=== PATIENT | female | born 1945 | race Caucasian/White ===

== ENCOUNTER 2025-05-08 12:30 | Observation (INO) | payer OTHER, SELFPAY ==
[2025-05-08] VITALS (14 sets, daily range): BP systolic 128–172; BP diastolic 69–126; BMI 32.6; BMI 26.1
[2025-05-08 08:35] LABS: Hematocrit 37.4 % (37.0-47.0); Hemoglobin 12.0 g/dL (12.0-16.0); Mean Corp Hgb Conc. 32.1 g/dL (33.0-37.0); Mean Corpuscular Volume 89.5 fL (81.0-99.0); Nucleated Red Blood Cells % 0 %; Platelet Count 247 10^3/uL (130-400); Red Cell Dist. Width 15.3 % (11.5-14.5)
--- NOTE | 2025-05-08 08:45 | ED.GENMED ---
History of Present Illness
General
Chief Complaint: Dizziness
Source: patient
Exam Limitations: none
Time Seen by Provider: 05/08/25 08:35
History of Present Illness
History of Present Illness:
79-year-old female 2 days of room spinning/disequilibrium. Occurs multiple times throughout the day. Worse when turning her head. Last episode was this morning. No other acute neurologic symptoms. Does describe some general headache that is
slightly unusual for her. No nausea or vomiting. No visual issues double vision.
Past History
Past History
ED Past Medical History: HTN, Psychiatric (a/d, prev hx of alcohol abuse) and Other (Hyponatremia, macular degeneration)
ED Past Surgical History: , Tonsilectomy and Other (Gastric bypass)
Social History
Tobacco: Non-smoker
Alcohol: None
Drug: None
Living: alone
Employment: Retired
Family History
Family History: Other (Sister with MS, mother with muscular dystrophy)
Review of Systems
Review of Systems
All Other Systems: Not applicable
Respiratory: Reports no symptoms
Cardiac: Reports no symptoms
ABD/GI: Reports no symptoms
Phy Exam
Physical Exam
Physical Exam:
GENERAL: Alert and oriented in no apparent distress
EYE: Orbits normal. Ongoing right horizontal nystagmus. No rotatory no bidirectional nystagmus
NECK: Supple
ENT: Pharynx without erythema
CARDIAC: Regular rate and rhythm without any obvious murmurs.
LUNGS: Clear breath sounds,normal
ABDOMEN: Soft, without focal tenderness or distention
NEUROLOGICAL: Alert and oriented , chronic left hemiplegia.
SKIN: Warm and dry, no rash or lesion, no discoloration, skin intact.
MUSCULOSKELETAL: No edema,no deformity.Good color
PSYCH: Normal and appropriate interaction.
Course
Orders/Labs/Results
Orders:
Orders
05/08/25 08:26
Electrocardiogram (*1) Urgent
Reason for Study: Chest Pain
EKG- Treatment ONCE
05/08/25 08:28
Complete Blood Count/With Diff Urgent
Comprehensive Metabolic Panel Urgent
Troponin I Urgent
05/08/25 08:44
CT Head W/o Iv Contrast Urgent
Comment:
Reason For Exam: Headache/disequilibrium
Cardiac Monitoring- Treatment ONCE
Meclizine [Antivert] 12.5 mg PO NOW STA
Abnormal Lab Results
05/08/25
08:28
RBC 4.18 L 10^6/uL
(4.20-5.40)
MCHC 32.1 L g/dL
(33.0-37.0)
RDW 15.3 H %
(11.5-14.5)
BUN 22 H mg/dl
(7-17)
Creatinine 1.2 H mg/dL
(0.6-1.0)
Glucose 115 H mg/dl
(70-99)
05/08/25 08:28
05/08/25 08:28
Vital Signs
Initial and Last Documented VS:
Initial Vital Signs
Temp Pulse Resp BP Pulse Ox
98.2 F 74 12 156/91 96
05/08/25 08:17 05/08/25 08:17 05/08/25 08:17 05/08/25 08:17 05/08/25 08:17
Last Documented Vital Signs
Temp Pulse Resp BP Pulse Ox
98.2 F 75 17 155/88 96
05/08/25 08:17 05/08/25 09:53 05/08/25 09:53 05/08/25 09:52 05/08/25 09:15
MDM/Problems Addressed
Differential Diagnosis Includes:
Patient describing disequilibrium/vertigo. Seems positional in nature. Old CVA with old hemiplegia. No acute neurologic symptoms. Likely inner ear however clearly at risk for CVA. Workup in progress.
*Pulse Oximetry
SaO2: 98
Oxygen Mode of Delivery: Room air
Patient hypoxic: no
*Critical Care Note
Total Time (30-74mins, 75-104mins- exclusive of procedures): Not Applicable
Data Reviewed
Review of Other/Old Records Reveals: Labs, Records and Testing
ED Attending Note
-
Portions of this chart may have been created with voice recognition software.� Occasional wrong word or��sound alike� substitutions may have occurred due to the inherent limitations of voice recognition software.
Discharge Plan
Departure
Patient Disposition: Admit
Date of Disposition: 05/08/25
Time of Disposition: 10:38
Presentation/result/management discussed w/ accepting MD/DO: Hospitalist
Discharge Problem:
Disequilibrium/vertigo, Ambulatory issues, History of left hemiplegia
Prescriptions:
No Action
Lokelma 10 gram Powder In Packet
10 g PO MOWEFR
Rx Instructions:
free products from [employer]
gabapentin 600 mg Tablet
600 mg PO BID
clopidogrel [Plavix] 75 mg Tablet
75 mg PO DAILY
tramadol 50 mg Tablet
50 mg PO TIDPRN PRN (Reason: moderate pains)
sodium bicarbonate 650 mg Tablet
650 mg PO TID
losartan 25 mg Tablet
25 mg PO QPM
Prolia 60 mg/mL Syringe
60 mg SC [id number]
PreserVision AREDS 2,148 mcg-113 mg-45 mg-17.4mg Tablet
1 tab PO BID
dapagliflozin propanediol [Farxiga] 10 mg Tablet
10 mg PO DAILY
atorvastatin 40 MG tablet
40 mg PO QPM
cyanocobalamin (vitamin B-12) 1,000 MCG tablet
1,000 mcg PO DAILY
amlodipine 5 MG tablet
5 mg PO DAILY
bupropion HCl 100 MG tablet
100 mg PO BID
cholecalciferol (vitamin D3) 1,000 UNITS tablet
1,000 units PO DAILY
multivitamin with folic acid [Tab-A-Lazaro] 1 TABLET tablet
1 tab PO DAILY 0RF
Referrals:
Harika Traylor DO [Family Provider, Family Practice]
Interventions
Interventions:
*Risk Screen - Suicide Last Done: 05/08/25 08:17
*General Assessment Last Done: 05/08/25 08:17
*Neglect/Abuse Screening Last Done: 05/08/25 08:17
*ED- Fall Risk Assessment Last Done: 05/08/25 08:17
ED- Neurological Assessment Last Done: 05/08/25 08:26
ED- Cardiac Assessment Last Done: 05/08/25 08:17
ED Swallowing Screen Last Done: 05/08/25 08:26
Discharge Date and Time
Print Language: LAO
[2025-05-08 08:48] LABS: ALT (SGPT) 30 U/L (0-35); AST (SGOT) 25 U/L (14-36); Albumin 4.1 g/dl (3.5-5.0); Alkaline Phosphatase 124 U/L (38-126); Blood Urea Nitrogen 22 mg/dl (7-17); Calcium 10.0 mg/dl (8.4-10.2); Carbon Dioxide 28 mmol/L (22-30); Chloride 106 mmol/L (98-107); Estimated Creatinine Clearance 40 ml/min; Glucose 115 mg/dl (70-99); Potassium 4.4 mmol/L (3.5-5.1); Sodium 137 mmol/L (135-145); Total Protein 6.8 g/dl (6.3-8.2); eGFR 46.33
[2025-05-08] MEDS: ANTIVERT 12.5 MG PO ×3 (08:59→21:25)
[2025-05-08 09:00] LABS: Troponin I 0.013 ng/ml
--- NOTE | 2025-05-08 12:13 | HPS.HSE ---
Addendum entered and electronically signed by Claribel Muniz MD 05/08/25 14:01:
Attending�addendum:
I saw and evaluated the patient independently. I reviewed and discussed the resident�s note and agree with findings and plan as documented in the resident�s note.� patient seen and examined at bedside, family at bedside, patient with history of CVA
who presented to the ER with dizziness, CT head negative, received imploring, patient denies any chest pain or shortness of breath, no abdominal pain, no nausea, no vomiting, no diarrhea or constipation.
Physical�exam:
GENERAL : Patient is awake, alert, oriented x3
HEENT: Nonicteric sclerae, PERRLA, EOMI. Oropharynx clear. Moist mucous membranes. Conjunctivae appear well perfused.
CHEST: Chest wall is nontender.
HEART: Regular rate and rhythm without murmurs.
LUNGS: Clear to auscultation bilaterally.
ABDOMEN: Soft, positive bowel sounds, nontender, no organomegaly.
RECTAL: Deferred.
MUSCLES/EXTREMITIES: No abnormal range of motion, no swelling.SKIN: No rash, no excessive bruising, petechiae, or purpura.
NEUROLOGIC: Baseline left-sided weakness
�
Assessment/plan:
Dizziness, possible benign positional vertigo.
MRI brain pending.
Continue meclizine.
Hypertension/hyperlipidemia.
Continue home meds.
History of CVA.
Continue plavix
CODE STATUS: Full code
DVT prophylaxis: Lovenox
Diet: Cardiac diet
Family communication: Discussed with family at bedside
Disposition: MRI brain
�
Total time spent on today�s encounter was 75 minutes which included time spent in counseling the patient/family regarding diagnosis and treatment plan as listed above, goals of care, and symptom management. Case was discussed with nursing staff,
specialists, and care coordinators/case management. All labs and imaging personally reviewed by me. Remainder the time spent in detailed review of previous records, lab data, imaging, and other medical provider documentation.
Original Note:
Family Physician
-
Family Physician: Harika Traylor
Chief Complaint
-
Dizziness
History of Present Illness
79-year-old female with past medical history of CVA in 2019, hypertension, hyperlipidemia, CKD 3A, macular degeneration, chronic back pain, depression, hyponatremia presents to the ER for dizziness. It started about 2 days ago with associated
headache. The dizziness is worse with quick head movements and when she closes her eyes. The dizziness goes away when she lays down flat with her eyes open. The headache she had was located in the back of her head. She rated it 5 out of 10 in
pain however it resolved this morning. She did not take any medication for it to resolve. She denies any recent upper respiratory tract infection. She denies any cough, cold, runny nose, sore throat. She denies any new weakness, numbness,
tingling. She has chronic left-sided hemiplegia and associated nerve pain for which she takes gabapentin from her CVA in 2019. She denies any chest pain, shortness of breath, heart palpitations, nausea, vomiting, diarrhea, constipation, dysuria,
hematuria, swelling in her lower extremities.
In the ED, she was noted to be slightly hypertensive however vitals otherwise afebrile satting well on room air. CBC and CMP fairly unremarkable. Creatinine of 1.2 is around baseline as patient states baseline creatinine is around 1.3-1.5.
[address] revealed no acute abnormalities. She received 1 dose of meclizine which did not help. Given her prior history of CVA, we are admitting overnight for further stroke work up.
Medical History
Past Medical History
Past Medical History: Reports Other (CVA 2019, CKD 3A, hypertension, hyperlipidemia, hyponatremia, chronic back pain, depression, history of alcohol use disorder)
Past Surgical History: Reports Other (, tonsillectomy, gastric bypass surgery, left hip gamma nail placement 02/2021)
Social History
Tobacco: Non-smoker
Alcohol: Former (Alcohol use disorder 40 years ago)
Drug: None
Living: Alone
Family History
Family History: Other (Mother - muscular dystrophy. Sister - MS, CVA.)
Allergies / Home Medications
Allergies reflects when Allergies were last updated in [facility].
Home Medications with original date entered in [facility]
Allergy/Medication List:
Allergies
Allergy/AdvReac Type Severity Reaction Status Date / Time
alendronate sodium (From Allergy Hives Verified 05/08/25 08:17
Fosamax)
enalapril Allergy cough Verified 05/08/25 08:17
nitrofurantoin Allergy Hives/rash, Verified 05/08/25 08:17
itching
Home Medications
multivitamin with folic acid 400 mcg tablet (Tab-A-Lazaro) 1 tab PO DAILY 03/26/20
amlodipine 5 mg tablet 5 mg PO DAILY Blood Pressure 05/08/25
atorvastatin 40 mg tablet 40 mg PO QPM High Cholesterol 05/08/25
bupropion HCl 100 mg tablet 100 mg PO BID Mental Health/Anxiety 05/08/25
cholecalciferol (vitamin D3) 25 mcg (1,000 unit) tablet 1,000 units PO DAILY Supplement 05/08/25
clopidogrel 75 mg tablet (Plavix) 75 mg PO DAILY Blood Clot Prevention/Tx 05/08/25
cyanocobalamin (vitamin B-12) 1,000 mcg tablet 1,000 mcg PO DAILY Supplement 05/08/25
dapagliflozin propanediol 10 mg tablet (Farxiga) 10 mg PO DAILY 05/08/25
denosumab 60 mg/mL subcutaneous syringe (Prolia) 60 mg SC [id number] 05/08/25
gabapentin 600 mg tablet 600 mg PO BID Neurological Condition 05/08/25
losartan 25 mg tablet 25 mg PO QPM 05/08/25
sodium bicarbonate 650 mg tablet 650 mg PO TID Electrolyte Repletion 05/08/25
sodium zirconium cyclosilicate 10 gram oral powder packet (Lokelma) 10 g PO MOWEFR 05/08/25
tramadol 50 mg tablet 50 mg PO TIDPRN PRN moderate pains 05/08/25
vitamins A,C,H-fzry-mglcps 2,148 mcg-113 mg-45 mg-17.4 mg tablet (PreserVision AREDS) 1 tab PO BID Supplement 05/08/25
Review of Systems
-
History Source: Patient
EENT: Reports No Symptoms
Respiratory: Reports No Symptoms
Cardiac: Reports No Symptoms
Abdomen/GI: Reports No Symptoms
: Reports No Symptoms
Musculoskeletal: Reports No Symptoms
Skin: Reports No Symptoms
Neurological: Reports Dizzy
Psych: Reports Calm
Physical Exam
Vital Signs
Vital Signs
Temp Pulse Resp BP Pulse Ox
98.2 F 71 16 134/78 99
05/08/25 08:17 05/08/25 10:00 05/08/25 10:00 05/08/25 10:00 05/08/25 10:00
Physical Exam
General: No Apparent Distress and Comfortable
HEENT: Moist mucous membranes and Other (Cerumen in bilateral ears, unable to visualize TM, horizontal nystagmus at rest. No vertical or bidirectional nystagmus noted.)
Respiratory: Clear
Cardiac: S1/S2 and Regular Rhythm
GI: Soft, Non Tender, Non Distended and Normal Bowel Sounds
Genito-urinary: Deferred by me
Musculoskeletal: No Cyanosis
Skin: Warm and Dry
Neuro: AO x 3, No Motor Deficits, Cranial Nerves Intact (Intact except for cranial nerve V on the left side with decree sensation with light touch -sequela of prior CVA) and Other (Chronic left-sided hemiplegia)
Psych: Calm
Laboratory Results
-
05/08/25 08:28
05/08/25 08:28
Laboratory Results
Total Bilirubin 0.5 mg/dl (0.2-1.3) 05/08/25 08:28
AST 25 U/L (14-36) 05/08/25 08:28
ALT 30 U/L (0-35) 05/08/25 08:28
Alkaline Phosphatase 124 U/L (38-126) 05/08/25 08:28
Troponin I 0.013 ng/ml 05/08/25 08:28
Impression/Plan
-
IMPRESSION:
79-year-old female with past medical history of CVA in 2019 presents to the ER for positional dizziness with associated horizontal nystagmus. Most likely cause is BPPV, however given history of CVA and occipital headache yesterday, the patient has
been admitted for further work up to rule out recurrent stroke.
IMAGING:
Head CT noncontrast 05/08/2025:
No acute intracranial abnormalities.
Old right parietal lobe infarct again identified.
Findings again seen compatible with diffuse cortical atrophy with nonspecific white matter changes as described above.
PLAN:
#Dizziness
# History of CVA 2019
-- Differentials include BPPV, vestibular labyrinthitis, M�ni�re's disease, CVA
-- Head CT no acute findings
-- Admit for observation
-- MRI noncontrast pending
-- Continue Plavix - On plavix watermaster and not asa due to CKD per neurologist Dr. Sindy Ghotra outpatient records
-- Continue atorvastatin
-- Meclizine 12.5 TID for dizziness
#CKD 3A
-- Creatinine 1.2 -baseline per patient 1.3-1.5
-- Continue Lokelma, sodium bicarb, Farxiga
-- Avoid nephrotoxic agents
#Hypertension
--Continue amlodipine, losartan
#Depression
-- Continue bupropion
#Chronic back pain
-- Continue tramadol
#Macular degeneration - continue home vitamins
#Gastric bypass surgery
#Hyponatremia
#Osteoporosis - On Prolia
DVT - heparin
Full code
--- NOTE | 2025-05-08 13:18 | CM ---
Chart reviewed. LATRELL reviewed at 1:05 pm
Spoke with patient at bedside ED
hx of CVA in the past and weak on left side
Lives in a condo first floor set up no KASSANDRA
Independent with ADLs and ambulating with a rollator
Has a cleaning lady once a week
Does NOT drive using instacart
DME Rollator, toilet grab bars
PCP Dr. Eliseo Traylor
RX plan yes
Pharmacy [facility] [place]
[facility]
Interested in [facility] if needs HHC.
no hx of SNF
DCP is to go home with HHC if needed
Son or dtr can pick her up
Dheeraj in [place]
Venkatesh in [place]
Marti in [facility]
CM will continue to follow up for any dcp needs
[2025-05-08] MEDS: LOKELMA 10 GRAM PO (14:28)
[2025-05-08] MEDS: HEPARIN 5000 UNITS SC (16:57)
[2025-05-08] MEDS: SODIUM BICARBONATE 650 MG PO ×2 (16:57→21:24)
[2025-05-08] MEDS: LIPITOR 40 MG PO (17:06)
[2025-05-08] MEDS: COZAAR 25 MG PO (17:06)
[2025-05-08] MEDS: WELLBUTRIN REGULAR RELEASE 100 MG PO (19:55)
[2025-05-08] MEDS: OCUVITE SOFTGEL 1 CAP PO (19:55)
[2025-05-08] MEDS: NEURONTIN 600 MG PO (19:55)
[2025-05-08] MEDS: ULTRAM 50 MG PO (19:56)
[2025-05-09] MEDS: HEPARIN 5000 UNITS SC ×2 (00:04→09:06)
[2025-05-09 07:43] VITALS: BP 155/80
[2025-05-09 07:52] LABS: Hematocrit 37.0 % (37.0-47.0); Hemoglobin 12.1 g/dL (12.0-16.0); Mean Corp Hgb Conc. 32.7 g/dL (33.0-37.0); Mean Corpuscular Volume 89.8 fL (81.0-99.0); Platelet Count 272 10^3/uL (130-400); Red Cell Dist. Width 15.6 % (11.5-14.5)
[2025-05-09 08:24] LABS: Blood Urea Nitrogen 31 mg/dl (7-17); Calcium 10.0 mg/dl (8.4-10.2); Carbon Dioxide 27 mmol/L (22-30); Chloride 105 mmol/L (98-107); Estimated Creatinine Clearance 37 ml/min; Glucose 96 mg/dl (70-99); Potassium 4.2 mmol/L (3.5-5.1); Sodium 137 mmol/L (135-145); eGFR 42.09
[2025-05-09] MEDS: FARXIGA 10 MG PO (09:05)
[2025-05-09] MEDS: NEURONTIN 600 MG PO (09:05)
[2025-05-09] MEDS: THERAGRAN 1 TABLET PO (09:05)
[2025-05-09] MEDS: VITAMIN D3 (cholecalciferol) 25 MCG PO (09:05)
[2025-05-09] MEDS: ANTIVERT 12.5 MG PO (09:05)
[2025-05-09] MEDS: PLAVIX 75 MG PO (09:05)
[2025-05-09] MEDS: WELLBUTRIN REGULAR RELEASE 100 MG PO (09:05)
[2025-05-09] MEDS: NORVASC 5 MG PO (09:05)
[2025-05-09] MEDS: VITAMIN B-12 1000 MCG PO (09:05)
[2025-05-09] MEDS: SODIUM BICARBONATE 650 MG PO (09:06)
[2025-05-09] MEDS: OCUVITE SOFTGEL 1 CAP PO (09:06)
--- NOTE | 2025-05-09 09:20 | W.PN.HOSP.TC ---
Addendum entered and electronically signed by Claribel Muniz MD 05/09/25 12:20:
Attending�addendum:
I saw and evaluated the patient independently. I reviewed and discussed the resident�s note and agree with findings and plan as documented in the resident�s note.� patient seen and examined at bedside, family at bedside, patient with history of CVA
who presented to the ER with dizziness, CT head negative, received imploring, patient denies any chest pain or shortness of breath, no abdominal pain, no nausea, no vomiting, no diarrhea or constipation.
MRI negative.
Physical�exam:
GENERAL : Patient is awake, alert, oriented x3
HEENT: Nonicteric sclerae, PERRLA, EOMI. Oropharynx clear. Moist mucous membranes. Conjunctivae appear well perfused.
CHEST: Chest wall is nontender.
HEART: Regular rate and rhythm without murmurs.
LUNGS: Clear to auscultation bilaterally.
ABDOMEN: Soft, positive bowel sounds, nontender, no organomegaly.
RECTAL: Deferred.
MUSCLES/EXTREMITIES: No abnormal range of motion, no swelling.SKIN: No rash, no excessive bruising, petechiae, or purpura.
NEUROLOGIC: Baseline left-sided weakness
�
Assessment/plan:
Dizziness, possible benign positional vertigo.
MRI brain negative.
Continue meclizine as needed.
Hypertension/hyperlipidemia.
Continue home meds.
History of CVA.
Continue plavix
CODE STATUS: Full code
DVT prophylaxis: Lovenox
Diet: Cardiac diet
Family communication: Discussed with family at bedside
Disposition: DC home.
�
Total time spent on today�s encounter was 51 minutes which included time spent in counseling the patient/family regarding diagnosis and treatment plan as listed above, goals of care, and symptom management. Case was discussed with nursing staff,
specialists, and care coordinators/case management. All labs and imaging personally reviewed by me. Remainder the time spent in detailed review of previous records, lab data, imaging, and other medical provider documentation.
Original Note:
Today's Communication/Plan
-
PT/OT for evaluation of vertigo
Discharge pending their recommendations
Assessment / Plan
Assessment / Plan
IMPRESSION:
79-year-old female with past medical history of CVA in 2019 presents to the ER for positional dizziness with associated horizontal nystagmus. Most likely cause is BPPV, however given history of CVA and occipital headache yesterday, the patient has
been admitted for further work up to rule out recurrent stroke. Brain MRI revealed no acute infarct. Awaiting physical therapy to evaluate before discharge.
IMAGING:
Head CT noncontrast 05/08/2025:
No acute intracranial abnormalities.
Old right parietal lobe infarct again identified.
Findings again seen compatible with diffuse cortical atrophy with nonspecific white matter changes as described above.
Brain MRI with and without contrast 05/08/2025
No acute intracranial abnormality.
Chronic senescent changes and multiple chronic infarcts, as detailed above.
PLAN:
#Dizziness
# History of CVA 2019
-- Differentials include BPPV, vestibular labyrinthitis, M�ni�re's disease, CVA
-- Head CT no acute findings
-- Admit for observation
-- Continue Plavix - On plavix fdc and not asa due to CKD per neurologist Dr. Sindy Ghotra outpatient records
-- Continue atorvastatin
-- Meclizine 12.5 TID for dizziness
-- Brain MRI revealed no acute findings
-- Awaiting PT/OT eval - discharged with physical therapy prescription for vestibular therapy today
#CKD 3A
-- Creatinine 1.2 -> 1.3 -baseline per patient 1.3-1.5
-- Continue Lokelma, sodium bicarb, Farxiga
-- Avoid nephrotoxic agents
#Hypertension
--Continue amlodipine, losartan
#Depression
-- Continue bupropion
#Chronic back pain
-- Continue tramadol
#Macular degeneration - continue home vitamins
#Gastric bypass surgery
#Hyponatremia
#Osteoporosis - On Prolia
DVT - heparin
Full code
Anticipated Discharge: Today
Subjective/Interval History
-
Date of Service: May 09, 2025
No complaints overnight. Slept well.
Objective Data
-
Labs:
Laboratory Results
05/09/25
07:35
WBC 7.4
Hgb 12.1
Hct 37.0
Plt Count 272
Sodium 137
Potassium 4.2
Chloride 105
Carbon Dioxide 27
BUN 31 H
Creatinine 1.3 H
Glucose 96
Calcium 10.0
Vital Signs:
Vital Signs
Temp Pulse Resp BP Pulse Ox
97.5 F 73 18 155/80 96
05/09/25 07:43 05/09/25 07:43 05/09/25 07:43 05/09/25 07:43 05/09/25 07:43
I&O
05/08/25 05/09/25 05/10/25
06:59 06:59 06:59
Intake Total 240 / 240
Balance 240 / 240
Review of Systems
-
History Source: Patient
EENT: Reports No Symptoms Reported
Respiratory: Reports No Symptoms
Cardiac: Reports No Symptoms
Abdomen/GI: Reports No Symptoms
Musculoskeletal: Reports Other (Back pain-chronic)
Skin: Reports No Symptoms
Neuro: Reports No Symptoms
Physical Exam
-
General: No Apparent Distress and Comfortable
HEENT: Normocephalic, PERRLA and Other (Horizontal nystagmus, no vertical or bidirectional nystagmus noted)
Respiratory: Clear to Auscultation
Cardiac: Regular Rhythm and S1/S2
GI: Soft, Nontender, Nondistended and Normal Bowel Sounds
Musculoskeletal: No Edema
Skin: Warm and Dry
Neuro: AO x 3 and Other (Chronic left-sided hemiaplegia)
Psych: Calm
--- NOTE | 2025-05-09 09:56 | W.DCSUMMARY ---
Addendum entered and electronically signed by Claribel Muniz MD 05/09/25 13:36:
Attending�addendum:
I saw and evaluated the patient independently. I reviewed and discussed the resident�s note and agree with findings and plan as documented in the resident�s note.� patient seen and examined at bedside, family at bedside, patient with history of CVA
who presented to the ER with dizziness, CT head negative, received imploring, patient denies any chest pain or shortness of breath, no abdominal pain, no nausea, no vomiting, no diarrhea or constipation.
MRI negative.
Physical�exam:
GENERAL : Patient is awake, alert, oriented x3
HEENT: Nonicteric sclerae, PERRLA, EOMI. Oropharynx clear. Moist mucous membranes. Conjunctivae appear well perfused.
CHEST: Chest wall is nontender.
HEART: Regular rate and rhythm without murmurs.
LUNGS: Clear to auscultation bilaterally.
ABDOMEN: Soft, positive bowel sounds, nontender, no organomegaly.
RECTAL: Deferred.
MUSCLES/EXTREMITIES: No abnormal range of motion, no swelling.SKIN: No rash, no excessive bruising, petechiae, or purpura.
NEUROLOGIC: Baseline left-sided weakness
�
Assessment/plan:
Dizziness, possible benign positional vertigo.
MRI brain negative.
Continue meclizine as needed.
Hypertension/hyperlipidemia.
Continue home meds.
History of CVA.
Continue plavix
CODE STATUS: Full code
DVT prophylaxis: Lovenox
Diet: Cardiac diet
Family communication: Discussed with family at bedside
Disposition: DC home.
�
Total time spent on today�s encounter was 40 minutes which included time spent in counseling the patient/family regarding diagnosis and treatment plan as listed above, goals of care, and symptom management. Case was discussed with nursing staff,
specialists, and care coordinators/case management. All labs and imaging personally reviewed by me. Remainder the time spent in detailed review of previous records, lab data, imaging, and other medical provider documentation.
Original Note:
Documented by User: Vanesa Cedeno MD, Resident 05/09/25 13:25
Discharge Summary
Discharge Data
Date of Admission: 05/08/25
Date of Discharge: 05/09/25
-
Pending Results: No
Hospital Course
Primary diagnosis:
Benign positional paroxysmal vertigo
Secondary diagnosis:
History of CVA 2019
CKD 3A
Hypertension
Depression
Chronic back pain
Macular degeneration
Gastric bypass surgery
Chronic hyponatremia
Osteoporosis
Hospital course:
79-year-old female with past medical history of CVA in 2019 presents to the ER for positional dizziness with associated horizontal nystagmus. Given history of CVA and occipital headache the day prior, the patient was admitted for further work up to
rule out recurrent stroke. Brain MRI revealed no acute infarct. Physical therapy confirmed diagnosis of BPPV and recommended outpatient vestibular therapy.
Today, patient is stable for discharge with prescription for meclizine 25 mg to be used up to 3 times a day as needed for dizziness and a physical therapy prescription for vestibular therapy.
Imaging:
Head CT noncontrast 05/08/2025:
No acute intracranial abnormalities.
Old right parietal lobe infarct again identified.
Findings again seen compatible with diffuse cortical atrophy with nonspecific white matter changes as described above.
Brain MRI with and without contrast 05/08/2025
No acute intracranial abnormality.
Chronic senescent changes and multiple chronic infarcts, as detailed above.
Discharge Plan
-
Patient Disposition: Home (Routine Discharge)
Discharge Diagnosis/Procedures: Benign positional paroxysmal vertigo
Condition: Fair
Diet: Low Cholesterol
Activity: With assistance
Driving Restrictions: As prior to admission
Bathing Restrictions: None
Referrals:
Emy Bearden [Other] - in one week
Referral Note: Vestibular therapy specialist
Harika Traylor DO [Family Provider, Family Practice] - in one week
Additional Discharge Medication Instructions: Please follow-up with outpatient vestibular therapy for further management of vertigo. Recommendation for vestibular therapist specialist in referral section.
If the meclizine helps you, you can take 25 mg up to 3 times a day as needed for dizziness.
Prescriptions:
New
meclizine 25 mg tablet
25 mg PO TID MDD Do not exceed 100mg a day Qty: 20 0RF
(DME) out patient vestibular therapy
See Rx Instructions .Route .MEDSUPPLY Qty: 1 0RF
Rx Instructions:
Evaluate and treat
Diagnosis: H81.10 - Benign paroxysmal vertigo, unspecified ear.
Continued
Lokelma 10 gram Powder In Packet
10 g PO MOWEFR
Rx Instructions:
free products from [employer]
gabapentin 600 mg Tablet
600 mg PO BID
clopidogrel [Plavix] 75 mg Tablet
75 mg PO DAILY
tramadol 50 mg Tablet
50 mg PO TIDPRN PRN (Reason: moderate pains)
sodium bicarbonate 650 mg Tablet
650 mg PO TID
losartan 25 mg Tablet
25 mg PO QPM
Prolia 60 mg/mL Syringe
60 mg SC [id number]
PreserVision AREDS 2,148 mcg-113 mg-45 mg-17.4mg Tablet
1 tab PO BID
dapagliflozin propanediol [Farxiga] 10 mg Tablet
10 mg PO DAILY
atorvastatin 40 MG tablet
40 mg PO QPM
cyanocobalamin (vitamin B-12) 1,000 MCG tablet
1,000 mcg PO DAILY
amlodipine 5 MG tablet
5 mg PO DAILY
bupropion HCl 100 MG tablet
100 mg PO BID
cholecalciferol (vitamin D3) 1,000 UNITS tablet
1,000 units PO DAILY
multivitamin with folic acid [Tab-A-Lazaro] 1 TABLET tablet
1 tab PO DAILY 0RF
Discharge Orders:
Discharge Patient (As Directed); Ordered 05/09/25
Ordered By: Vanesa Cedeno
Discharge Date and Time
Print Language: GUAMANIAN

Documented by User: Claribel Muniz MD 05/09/25 13:36
Discharge Summary
Discharge Data
Date of Admission: 05/08/25
Date of Discharge: 05/09/25
Discharge Plan
-
Patient Disposition: Home (Routine Discharge)
Discharge Diagnosis/Procedures: Benign positional paroxysmal vertigo
Condition: Fair
Diet: Low Cholesterol
Activity: With assistance
Driving Restrictions: As prior to admission
Bathing Restrictions: None
Referrals:
Emy Bearden [Other] - in one week
Referral Note: Vestibular therapy specialist
Harika Traylor DO [Family Provider, [facility]] - in one week
Additional Discharge Medication Instructions: Please follow-up with outpatient vestibular therapy for further management of vertigo. Recommendation for vestibular therapist specialist in referral section.
If the meclizine helps you, you can take 25 mg up to 3 times a day as needed for dizziness.
Prescriptions:
New
meclizine 25 mg tablet
25 mg PO TID MDD Do not exceed 100mg a day Qty: 20 0RF
(DME) out patient vestibular therapy
See Rx Instructions .Route .MEDSUPPLY Qty: 1 0RF
Rx Instructions:
Evaluate and treat
Diagnosis: H81.10 - Benign paroxysmal vertigo, unspecified ear.
Continued
Lokelma 10 gram Powder In Packet
10 g PO MOWEFR
Rx Instructions:
free products from [employer]
gabapentin 600 mg Tablet
600 mg PO BID
clopidogrel [Plavix] 75 mg Tablet
75 mg PO DAILY
tramadol 50 mg Tablet
50 mg PO TIDPRN PRN (Reason: moderate pains)
sodium bicarbonate 650 mg Tablet
650 mg PO TID
losartan 25 mg Tablet
25 mg PO QPM
Prolia 60 mg/mL Syringe
60 mg SC [id number]
PreserVision AREDS 2,148 mcg-113 mg-45 mg-17.4mg Tablet
1 tab PO BID
dapagliflozin propanediol [Farxiga] 10 mg Tablet
10 mg PO DAILY
atorvastatin 40 MG tablet
40 mg PO QPM
cyanocobalamin (vitamin B-12) 1,000 MCG tablet
1,000 mcg PO DAILY
amlodipine 5 MG tablet
5 mg PO DAILY
bupropion HCl 100 MG tablet
100 mg PO BID
cholecalciferol (vitamin D3) 1,000 UNITS tablet
1,000 units PO DAILY
multivitamin with folic acid [Tab-A-Lazaro] 1 TABLET tablet
1 tab PO DAILY 0RF
Discharge Orders:
Discharge Patient (As Directed); Ordered 05/09/25
Ordered By: Vanesa Cedeno
Discharge Date and Time
Print Language: GUAMANIAN
[2025-05-09 10:20] VITALS: BP 160/89; BP 173/98; PULSE 91; O2SAT 95
--- NOTE | 2025-05-09 10:37 | PTCARENOTE ---
Patient ambulating to bathroom with rollator and supervision. Patient has no dizziness when ambulating, but does et dizzy when turning head from side to side. Bed alarm maintained.
[2025-05-09 10:47] VITALS: BP 160/89; BP 173/98; PULSE 113; O2SAT 96
--- NOTE | 2025-05-09 11:51 | CM ---
Patient will discharge home today
PT rec OP vestibular PT, provided patient brochure and info, will call Sunday to schedule consultation
Spoke w/ patient's son, Venkatesh, to update. Confirmed he can transport patient home
Updated nurse
Plan: Home, OP vestibular PT
[2025-05-09] MEDS: ULTRAM 50 MG PO (13:06)
== END 2025-05-09 13:50 | disposition home or self-care (01) ==
LOC: 4 WEST ACU 12:30
PROVIDERS: ADMITTING PHYSICIAN General Practice; EMERGENCY PHYSICIAN Emergency Medicine; FAMILY PHYSICIAN Family Medicine
DX: H81.10 Benign paroxysmal vertigo, unspecified ear (principal); R51.9 Headache, unspecified; I12.9 Hypertensive chronic kidney disease with stage 1 through stage 4 chronic kidney disease, or unspecified chronic kidney disease; E87.1 Hypo-osmolality and hyponatremia; H35.30 Unspecified macular degeneration; H55.09 Other forms of nystagmus; R07.9 Chest pain, unspecified; R26.9 Unspecified abnormalities of gait and mobility; M81.0 Age-related osteoporosis without current pathological fracture; G31.9 Degenerative disease of nervous system, unspecified; E78.5 Hyperlipidemia, unspecified; N18.31 Chronic kidney disease, stage 3a; G89.29 Other chronic pain; R94.31 Abnormal electrocardiogram [ECG] [EKG]; M54.9 Dorsalgia, unspecified; M79.2 Neuralgia and neuritis, unspecified; F32.A Depression, unspecified; I69.354 Hemiplegia and hemiparesis following cerebral infarction affecting left non-dominant side; Z60.2 Problems related to living alone; Z98.84 Bariatric surgery status; Z79.84 Long term (current) use of oral hypoglycemic drugs; Z79.899 Other long term (current) drug therapy; Z82.3 Family history of stroke; Z88.8 Allergy status to other drugs, medicaments and biological substances; Z88.3 Allergy status to other anti-infective agents; Z90.89 Acquired absence of other organs
CPT/HCPCS: 70450; 70553; 80048; 80053; 84484; 85025; 85027; 93005; 97112; 97116; 97163; 97166; 99285; A9575; G0378

== ENCOUNTER 2025-05-25 14:22 | Outpatient (RCR) | payer OTHER, SELFPAY | END 2025-05-25 23:59 | disposition home or self-care (01) | LOC: RPT 14:22 | PROVIDERS: ATTENDING PHYSICIAN Family Medicine | DX: H81.10 Benign paroxysmal vertigo, unspecified ear (principal); Z73.6 Limitation of activities due to disability; I69.354 Hemiplegia and hemiparesis following cerebral infarction affecting left non-dominant side | CPT/HCPCS: 97162; 97530 ==